=== PATIENT | male | born 1965 | race Caucasian/White ===

== ENCOUNTER 2017-12-07 14:19 | Emergency (ER) | payer OTHER ==
[~2017-12-07] VITALS: Ht 182.9 cm; Wt 95.3 kg
[2017-12-07] MEDS ORDERED: ONDANSETRON HCL INJ 2 MG/ML VIAL IV STA (15:26)
[2017-12-07] MEDS ORDERED: MORPHINE SULFATE INJ 4 MG/ML INJ IV STA (15:26)
[2017-12-07] MEDS ORDERED: SODIUM CHLORIDE 0.9% 1000ML 1,000 ML IV STA (15:26)
[2017-12-07 16:05] LABS: BASOPHILS # (AUTO) 0.1 (0.0-0.1); BASOPHILS % 0.8 % (0.0-1.0); EOSINOPHILS # (AUTO) 0.2 (0.0-0.4); EOSINOPHILS % 2.1 % (0.0-6.0); HEMATOCRIT 41.5 % (38.2-49.6); HEMOGLOBIN 14.3 g/dL (14.0-18.0); LYMPHOCYTES # (AUTO) 2.2 (1.0-3.2); LYMPHOCYTES % 26.2 % (18.0-39.1); MEAN CORPUSCULAR HEMOGLOBIN 30.4 pg (28-32); MEAN CORPUSCULAR HGB CONC 34.5 g/dL (31-35); MEAN CORPUSCULAR VOLUME 88.3 fL (81-99); MONOCYTES # (AUTO) 0.8 (0.2-0.8); MONOCYTES % 9.1 % (4.4-11.3); NEUTROPHILS # (AUTO) 5.2 (2.1-6.9); NEUTROPHILS % 61.3 % (38.7-80.0); PLATELET COUNT 232 x10e3/uL (140-360); RED CELL DISTRIBUTION WIDTH 12.8 % (11.7-14.4)
--- NOTE | 2017-12-07 16:13 | Diagnostic Imaging Report ---
EXAMINATION: CT of the abdomen and pelvis without contrast. TECHNIQUE: Spiral CT images of the abdomen and pelvis were performed from the lung bases to the lesser trochanters. No intravenous contrast was given per renal stone protocol. Coronal and sagittal reformatted images were obtained. COMPARISON: None. CLINICAL HISTORY:Left lower back and testicular pain DISCUSSION: ABSENCE OF INTRAVENOUS CONTRAST DECREASES SENSITIVITY FOR DETECTION OF FOCAL LESIONS AND VASCULAR PATHOLOGY. ABDOMEN/PELVIS: LOWER THORAX: Subsegmental atelectasis in the dependent lower lobes. HEPATOBILIARY:No focal hepatic lesion or intrahepatic biliary ductal dilatation. The gallbladder is unremarkable. SPLEEN: Calcified granuloma. No splenomegaly. PANCREAS: No focal masses or ductal dilatation. ADRENALS: No adrenal nodules. KIDNEYS/URETERS: Bilateral nonspecific perinephric fat stranding. No hydronephrosis. No renal, ureteral, or bladder calculi. No gross renal mass lesion though evaluation is limited in the absence of intravenous contrast. PELVIC ORGANS/BLADDER: The urinary bladder is unremarkable. Prostate and seminal vesicles appear normal. PERITONEUM/RETROPERITONEUM: No ascites. No pneumoperitoneum. LYMPH NODES: No pelvic sidewall, retroperitoneal, or mesenteric lymphadenopathy. VESSELS: Atherosclerotic calcification of the abdominal aorta and major branch vessels without aneurysmal dilatation. Evaluation is otherwise limited in the absence of intravenous contrast. GI TRACT: The large bowel shows no evidence of distention or wall thickening. There are scattered descending colon and sigmoid diverticula without wall thickening or adjacent inflammatory change. The appendix is normal. There is no small bowel dilatation to suggest obstruction. BONES AND SOFT TISSUES: Small fat-containing broad-based umbilical hernia without inflammatory change. No osseous destructive lesions. Chronic moderate anterior compression deformity of T11. IMPRESSION: No acute intra-abdominal or pelvic CT abnormalities. No CT evidence of urolithiasis. Atherosclerotic vascular disease. Sigmoid diverticulosis without findings of diverticulitis. Evidence of prior granulomatous infection. Signed by: Dr. Reginaldo Blackwell M.D. on 12/07/2017 4:10 PM
[2017-12-07] MEDS ORDERED: HYDROXYZINE HCL25 MG PO (16:14)
[2017-12-07] MEDS ORDERED: SIMVASTATIN40 MG PO (16:14)
[2017-12-07] MEDS ORDERED: FLECAINIDE ACET50 MG PO (16:14)
[2017-12-07] MEDS ORDERED: TERBINAFINE HC250 MG PO (16:14)
[2017-12-07] MEDS ORDERED: CLOTRIMAZOLE15 GM TOP (16:14)
[2017-12-07] MEDS ORDERED: LISINOPRIL10 MG PO (16:14)
[2017-12-07 16:18] LABS: CLARITY,URINE CLEAR (CLEAR); COLOR,URINE YELLOW (YELLOW)
[2017-12-07 16:19] LABS: BILIRUBIN,URINE NEGATIVE (NEGATIVE); KETONES,URINE NEGATIVE (NEGATIVE); LEUKOCYTE ESTERASE ,URINE NEGATIVE (NEGATIVE); NITRITE,URINE NEGATIVE (NEGATIVE); PROTEIN,URINE DIPSTICK NEGATIVE (NEGATIVE); URINE UROBILINOGEN 0.2 mg/dL (0.2 - 1)
[2017-12-07 16:36] LABS: ALANINE AMINOTRANSFERASE 30 IU/L (0-55); ALBUMIN 4.2 g/dL (3.5-5.0); ALBUMIN/GLOBULIN RATIO 1.4 (0.8-2.0); ALKALINE PHOSPHATASE 72 IU/L (40-150); BLOOD UREA NITROGEN 11 mg/dL (7-26); BUN/CREATININE RATIO 13 (6-25); CALCIUM 9.7 mg/dL (8.4-10.2); CREATININE, SERUM 0.88 mg/dL (0.72-1.25); EST GLOMERULAR FILTRATION RATE > 60 ML/MIN (60-); GLUCOSE 79 mg/dL (74-118)
[2017-12-07 16:59] LABS: CHLORIDE 104 mmol/L (98-107); POTASSIUM 4.1 mmol/L (3.5-5.1); SODIUM 139 mmol/L (136-145)
[2017-12-07] MEDS ORDERED: MORPHINE SULFATE INJ 4 MG/ML INJ IV ONE (17:10)
[2017-12-07 17:50] LABS: ANION GAP 13.1 mmol/L (8-16); CARBON DIOXIDE 26 mmol/L (22-29)
[2017-12-07] MEDS ORDERED: KETOROLAC TROMETHAMINE 60 MG/2 ML VIAL IM ONE (18:00)
[2017-12-07] MEDS ORDERED: DEXAMETHASONE SOD PHOS INJ 4 MG/ML VIAL IM ONE (18:00)
== END 2017-12-07 19:05 | disposition home or self-care (01) ==
LOC: ER 14:19
DX: N50.812 Left testicular pain (principal); R10.2 Pelvic and perineal pain; N50.89 Other specified disorders of the male genital organs; M54.5 Low back pain; S39.012A Strain of muscle, fascia and tendon of lower back, initial encounter
CPT/HCPCS: 36415; 74176; 80053; 81001; 85025; 99284; J1100; J1885; J2270; J2405; J7030

== ENCOUNTER 2018-07-02 14:38 | Observation (INO) | payer OTHER ==
[~2018-07-02] VITALS: Ht 182.9 cm; Wt 97.5 kg
[2018-07-02] VITALS: BP 127/69
[~2018-07-02 14:38] MED LIST: CLOTRIMAZOLE15 GM TOP; FLECAINIDE ACET50 MG PO; HYDROXYZINE HCL25 MG PO; LISINOPRIL10 MG PO; SIMVASTATIN40 MG PO; TERBINAFINE HC250 MG PO
--- OUTSIDE RECORDS SUMMARY | 2018-07-02 14:42 | XMS REPORT ---
Author Author [facility] Address Unknown Phone Unavailable Care Team Providers Care Broadcast Operations Director Name Role Phone Wayne ALVARADO Unavailable Unavailable Problems This patient has no known problems. Allergies, Adverse Reactions, Alerts This patient has no known allergies or adverse reactions. Medications This patient has no known medications. Results Test Description Test Time Test Comments Text Results Atomic Results Result Comments CT ABDOMEN/PELVIS WO 2017-12-07 16:02:00 [place] [address] Patient Name: ADELITA FRAGA MR #: [id number] : 1965 Age/Sex: 52/M Req #: [id number] Adm Physician: Ordered by: PARKER SCHULTZ POLICE COMMUNICATIONS DISPATCHER Report #: [id number] Location: ER Room/Bed: Procedure: [id number] CT/CT ABDOMEN/PELVIS WO Exam Date: 12/07/17 Exam Time: 1544 REPORT STATUS: Signed EXAMINATION: CT of the abdomen and pelvis without contrast. TECHNIQUE: Spiral CT images of the abdomen and pelvis were performed from the lung bases to the lesser trochanters. No intravenous contrast was given per renal stone protocol. Coronal and sagittal reformatted images were obtained. COMPARISON: None. CLINICAL HISTORY:Left lower back and testicular pain DISCUSSION: ABSENCE OF INTRAVENOUS CONTRAST DECREASES SENSITIVITY FOR DETECTION OF FOCAL LESIONS AND VASCULAR PATHOLOGY. ABDOMEN/PELVIS: LOWER THORAX: Subsegmental atelectasis in the dependent lower lobes. HEPATOBILIARY:No focal hepatic lesion or intrahepatic biliary ductal dilatation. The gallbladder is unremarkable. SPLEEN: Calcified granuloma. No splenomegaly. PANCREAS: No focal masses or ductal dilatation. ADRENALS: No adrenal nodules. KIDNEYS/URETERS: Bilateral nonspecific perinephric fat stranding. No hydronephrosis. No renal, ureteral, or bladder calculi. No gross renal mass lesion though evaluation is limited in the absence of intravenous contrast. PELVIC ORGANS/BLADDER: The urinary bladder is unremarkable. Prostate and seminal vesicles appear normal. PERITONEUM/RETROPERITONEUM: No ascites. No pneumoperitoneum. LYMPH NODES: No pelvic sidewall, retroperitoneal, or mesenteric lymphadenopathy. VESSELS: Atherosclerotic calcification of the abdominal aorta and major branch vessels without aneurysmal dilatation. Evaluation is otherwise limited in the absence of intravenous contrast. GI TRACT: The large bowel shows no evidence of distention or wall thickening. There are scattered descending colon and sigmoid diverticula without wall thickening or adjacent inflammatory change. The appendix is normal. There is no small bowel dilatation to suggest obstruction. BONES AND SOFT TISSUES: Small fat-containing broad-based umbilical hernia without inflammatory change. No osseous destructive lesions. Chronic moderate anterior compression deformity of T11. IMPRESSION: No acute intra-abdominal or pelvic CT abnormalities. No CT evidence of urolithiasis. Atherosclerotic vascular disease. Sigmoid diverticulosis without findings of diverticulitis. Evidence of prior granulomatous infection. Signed by: Dr. Cheo Desir M.D. on 12/07/2017 4:10 PM Dictated By: CHEO DESIR MD [id number] Transcribed By: VICKI on 12/07/17 1610 COPY TO: PARKER SCHULTZ NP
--- NOTE | 2018-07-02 15:18 | Diagnostic Imaging Report ---
EXAM: CHEST SINGLE (PORTABLE) DATE: 07/02/2018 2:47 PM INDICATION:Shortness of breath COMPARISON: None FINDINGS: Lines and tubes: There is a loop recorder device projected on the left mid chest. Heart size normal. No focal pulmonary opacity, pleural effusion or pneumothorax. Upper abdomen unremarkable. No acute bony abnormality. IMPRESSION: No evidence for acute disease. Signed by: Dr. Myke Pompa M.D. on 07/02/2018 3:15 PM
[2018-07-02 15:37] LABS: BASOPHILS # (AUTO) 0.1 (0.0-0.1); BASOPHILS % 0.7 % (0.0-1.0); EOSINOPHILS # (AUTO) 0.2 (0.0-0.4); EOSINOPHILS % 2.6 % (0.0-6.0); HEMATOCRIT 43.4 % (38.2-49.6); HEMOGLOBIN 14.7 g/dL (14.0-18.0); LYMPHOCYTES % 22.2 % (18.0-39.1); MEAN CORPUSCULAR HEMOGLOBIN 30.2 pg (28-32); MEAN CORPUSCULAR HGB CONC 33.9 g/dL (31-35); MEAN CORPUSCULAR VOLUME 89.1 fL (81-99); MONOCYTES # (AUTO) 0.7 (0.2-0.8); MONOCYTES % 8.2 % (4.4-11.3); NEUTROPHILS # (AUTO) 5.9 (2.1-6.9); NEUTROPHILS % 65.9 % (38.7-80.0); PLATELET COUNT 242 x10e3/uL (140-360); RED BLOOD COUNT 4.87 x10e6/uL (4.3-5.7); RED CELL DISTRIBUTION WIDTH 12.7 % (11.7-14.4)
[2018-07-02] MEDS ORDERED: ACETAMINOPHEN 325 MG TAB PO ONE (15:45)
[2018-07-02 15:54] LABS: INR 0.9; PARTIAL THROMBOPLASTIN TIME 31.5 seconds (23.8-35.5); PROTHROMBIN TIME 12.6 seconds (11.9-14.5)
[2018-07-02 16:06] LABS: ALANINE AMINOTRANSFERASE 32 IU/L (0-55); ALBUMIN/GLOBULIN RATIO 1.3 (0.8-2.0); ALKALINE PHOSPHATASE 74 IU/L (40-150); ANION GAP 12.1 mmol/L (8-16); BLOOD UREA NITROGEN 11 mg/dL (7-26); BUN/CREATININE RATIO 13 (6-25); CALCIUM 9.6 mg/dL (8.4-10.2); CARBON DIOXIDE 26 mmol/L (22-29); CHLORIDE 100 mmol/L (98-107); CREATINE KINASE 73 IU/L (30-200); CREATININE, SERUM 0.83 mg/dL (0.72-1.25); EST GLOMERULAR FILTRATION RATE > 60 ML/MIN (60-); GLUCOSE 95 mg/dL (74-118); MAGNESIUM 2.4 MG/DL (1.3-2.1); POTASSIUM 4.1 mmol/L (3.5-5.1); SODIUM 134 mmol/L (136-145)
[2018-07-02] MEDS ORDERED: ONDANSETRON HCL INJ 2MG/ML 2ML 2 MG/ML VIAL IV PRN (16:30)
[2018-07-02] MEDS ORDERED: MORPHINE SULFATE 2 MG/ML SYR 1ML IV PRN (16:30)
[2018-07-02] MEDS ORDERED: MORPHINE SULFATE INJ 4 MG/ML INJ 1ML IV PRN (16:30)
--- NOTE | 2018-07-02 16:41 | NUR ---
Pharmacy notified there is no pepcid in pyxis at this time.
[2018-07-02] MEDS: FAMOTIDINE 20 MG/2 ML VIAL IV SCH (17:08)
--- NOTE | 2018-07-02 17:50 | NUR ---
Patient arrived from Er via stretcher. He is awake, alert, ambulatory and able to voice concerns. Patient currently denies CP. Tele #[id number]. POC discussed. He was instructed to call for assistance as needed and verbalized understanding. Call drummond within reach. Initial assessment done.
[2018-07-02 18:00] VITALS: BP 149/76
[2018-07-02 18:26] VITALS: BP 149/76
--- NOTE | 2018-07-02 19:00 | NUR ---
WALKING ROUNDS DONE. REPORT GIVEN TO ONCOMING SHIFT
[2018-07-02 20:00] VITALS: BP 118/58
[2018-07-02 21:16] VITALS: BP 118/58
[2018-07-02 23:42] LABS: CREATINE KINASE MB 0.8 ng/mL (0-5.0)
[2018-07-03] VITALS: BP 127/69
[2018-07-03] MEDS: FAMOTIDINE 20 MG/2 ML VIAL IV SCH ×2 (04:17→16:48)
[2018-07-03 06:13] LABS: BASOPHILS # (AUTO) 0.1 (0.0-0.1); EOSINOPHILS # (AUTO) 0.3 (0.0-0.4); HEMATOCRIT 42.1 % (38.2-49.6); HEMOGLOBIN 14.5 g/dL (14.0-18.0); LYMPHOCYTES # (AUTO) 1.9 (1.0-3.2); LYMPHOCYTES % 23.7 % (18.0-39.1); MEAN CORPUSCULAR HEMOGLOBIN 30.3 pg (28-32); MEAN CORPUSCULAR HGB CONC 34.4 g/dL (31-35); MEAN CORPUSCULAR VOLUME 88.1 fL (81-99); MONOCYTES # (AUTO) 0.7 (0.2-0.8); MONOCYTES % 8.3 % (4.4-11.3); NEUTROPHILS % 62.6 % (38.7-80.0); PLATELET COUNT 223 x10e3/uL (140-360); RED BLOOD COUNT 4.78 x10e6/uL (4.3-5.7); RED CELL DISTRIBUTION WIDTH 12.7 % (11.7-14.4)
[2018-07-03 07:30] VITALS: BP 127/69
--- NOTE | 2018-07-03 07:39 | NUR ---
H&P cc: chest pain HPI: 53yoM, PCP , Cardio- , developed right sided cp, then left cp; Some dizziness. PMH: HTN, HLD, PAF, FL without stent, current smoker PSHx: loop recorder, A.fib ablation Allergies; see emr Fh/SH; 1 1/2ppd cigs meds; see MAR ROS: no f/c/s/n/V/D/COSTA/vision changes/leg pain/skin rash/back pain v/s; revd PE nad anicteric ns1s2 mod bs soft nt nd no e/t a&ox3; bell skin dry n. affect labs/meds; revd A/P: 53yoM Atypical chest pain HTn HLD PAF Current smoker PLAN serial enzymes Flecanide/aceI ASA/statin Echo normal; cleared by cardio; Needs to f/u outpt for stress test with cardio. encouraged to quit cigs. d/c home f/u pcp 1 week and cardiology 3 days for stress test stable d/c>35mins Chava Sagastume MD, PhD.
[2018-07-03 07:49] LABS: ALANINE AMINOTRANSFERASE 31 IU/L (0-55); ALBUMIN 3.6 g/dL (3.5-5.0); ALBUMIN/GLOBULIN RATIO 1.2 (0.8-2.0); ALKALINE PHOSPHATASE 74 IU/L (40-150); ANION GAP 13.3 mmol/L (8-16); CALCIUM 9.3 mg/dL (8.4-10.2); CARBON DIOXIDE 22 mmol/L (22-29); CHLORIDE 106 mmol/L (98-107); CHOLESTEROL 206 MD/DL (0-199); CREATININE, SERUM 0.79 mg/dL (0.72-1.25); EST GLOMERULAR FILTRATION RATE > 60 ML/MIN (60-); GLUCOSE 112 mg/dL (74-118); HDL CHOLESTEROL 41 MG/DL (40-60); LDL CHOLESTEROL 114 MG/DL (60-130); POTASSIUM 4.3 mmol/L (3.5-5.1); SODIUM 137 mmol/L (136-145); TRIGLYCERIDES 256 MG/DL (0-149)
[2018-07-03 08:01] VITALS: BP 141/80
[2018-07-03 08:03] LABS: BLOOD UREA NITROGEN 13 mg/dL (7-26); BUN/CREATININE RATIO 17 (6-25)
[2018-07-03 08:16] LABS: CREATINE KINASE 55 IU/L (30-200)
[2018-07-03] MEDS ORDERED: ASPIRIN 81 MG ENTERIC COATED PO SCH (09:00)
--- NOTE | 2018-07-03 09:28 | NUR ---
CASE MANAGEMENT INITIAL ASSESSMENT Biometrics Instructor to bedside to discuss plan of care with patient/family. CM/SW role and care transitions discussed. Anticipated discharge plan discussed along with duration of care. CM/SW discussed patients right to make decisions in care. CM/SW work hours given. Patient lives: Admit/Transfer: ER Hospital/ER visits since last admit:YES POA/Emergency contact: CAT[place]: [phone] Current/Previous Home Health: 0 PCP/Follow-up Care: DR. CARMEL HAYES AT [facility] [place] Current/Previous DME: [employer] [facility] IN CHEST. NO OTHER DME Medications (referring to index hospitalization or the first time you were in the hospital) a. Were changes made in your medications when you were in the hospital on [date of index hospitalization]? X Yes No Not sure Explain: Note: If no or not sure, please skip to question d b. Did you understand the changes? X Yes No Explain: c. Were you able to obtain your new medications right away? X Yes No n/a SNF only Explain: d. Were you able to take your medications like the doctor wanted you to? X Yes No Explain: e. Did the hospital give you an accurate, easy to understand list of medications when you left? X Yes No n/a SNF only Explain: Scale of 1-10 how comfortable does patient feel with disease management in outpatient settin Other Services: [employer] Employment Status: EMPLOYED Areas of Concerns: 0 Referral Needs: 0 Education Needs: 0 IMM/BABIN given and signed (if applicable): N/A Goal for discharge: RETURN HOME WITH WIE CM/SW left business card at the bedside with contact information. Name and number was also written on the patients whiteboard. Patient verbalized understanding of discussion. CM will follow-up with ongoing discharge and transition of care needs.
--- NOTE | 2018-07-03 12:35 | NUR ---
patient and family going out to parking lot. instructed that telemetry probably wouldnt work outside and that there is no smoking at this facility. patient continued to exit building.
[2018-07-03] MEDS ORDERED: FLECAINIDE ACETATE 100 MG TAB PO SCH (12:45)
[2018-07-03 12:49] VITALS: BP 148/79
[2018-07-03] MEDS ORDERED: LISINOPRIL 10 MG TAB PO SCH (13:00)
[2018-07-03 14:51] LABS: CREATINE KINASE 50 IU/L (30-200)
[2018-07-03 16:11] VITALS: BP 143/77
--- NOTE | 2018-07-03 18:13 | Consultation ---
DATE OF CONSULTATION: Cardiology Consultation CONSULTING PHYSICIAN: Dr. Sagastume. REASON FOR CONSULTATION: Chest pain. HISTORY OF PRESENT ILLNESS: Mr. Fink is a 53-year-old male with a pertinent past medical history of atrial fibrillation, hypertension, and SD at the age of 24. He states that he was in his usual state of health. However, yesterday started experiencing some pain in his right upper quadrant radiating to his right upper chest. This pain came with some dizziness and also headache. Two occurrences of the same pain are reported and for that reason, he sought emergency services. This pain is now resolved. At this present time, he denies any chest pain, shortness of breath, palpitations, fevers, chills, cough, dizziness, or syncope. He does report having a PVI done in 2014 and currently has an internal loop recorder. He has been seeing Dr. Alves and had stress test scheduled, however, has not completed testing at this time. REVIEW OF SYSTEMS: Negative except as mentioned above. PAST MEDICAL HISTORY: As stated above. PAST SURGICAL HISTORY: None. SOCIAL HISTORY: He is a smoker. Endorses drinking about six-pack couple times a week. Denies any illicit drug use. PHYSICAL EXAMINATION: VITAL SIGNS: Temperature 96.6, pulse 61, respiratory rate 18, blood pressure 141/80, and oxygen saturation 98% on room air. CARDIOVASCULAR MEDICATIONS: 1. Aspirin 81 mg p.o. daily. 2. Morphine 2 mg q.3 hours p.r.n. 3. Pepcid 20 mg IV q.12 hours. LABORATORY DATA: WBC 7.93, hemoglobin 14.5, hematocrit 42.1, platelets 223. Sodium 137, potassium 4.3, BUN 13, creatinine 0.79, glucose 112, creatine kinase 55, CK-MB 0.80. Troponin less than 0.001. Total cholesterol 206, triglycerides 256, LDL 114. Chest x-ray with no evidence of acute disease. Telemetry, normal sinus rhythm. PHYSICAL EXAMINATION: GENERAL: Alert and oriented x3. Resting comfortably in bed. Does not appear to be in any acute distress. NECK: Supple. No JVD noted. No carotid bruit. CARDIOVASCULAR: Regular rate and rhythm, 2/6 systolic murmur present. No gallops noted. LUNGS: Clear to auscultation throughout. No wheezing. No rhonchi or crackles. ABDOMEN: Soft, nontender. EXTREMITIES: Lower extremity 2+ pedal pulses. No edema. IMPRESSION: 1. Atypical chest pain. 2. Right upper quadrant pain. 3. Paroxysmal atrial fibrillation, status post PVI, now with a loop recorder. 4. Hypertension. 5. History of myocardial infarction at the age of 24. RECOMMENDATION: Acute coronary syndrome has been ruled out with serial cardiac markers. The patient may be further evaluated as outpatient. Okay to discharge this patient from a cardiac standpoint. Medications have been adjusted to help with dizziness as reported by the patient. This occurs occasionally. Continue beta blockers outpatient. Discontinue flecainide at this time. We will continue to follow this patient as outpatient. Thank you for this consultation. Dictated by Courtney Lowe NP MD KENY Nguyễn/JORDAN /[id number]
[2018-07-03] MEDS ORDERED: ASPIRIN EC81 MG PO (19:15)
[2018-07-03] MEDS ORDERED: PEPCID20 MG PO (19:15)
--- NOTE | 2018-07-03 19:19 | NUR ---
D/C summary Principal Dx: Atypical CP Secondary Dx: HTn HLD PAF Current smoker PLAN serial enzymes Flecanide/aceI ASA/statin Echo normal; cleared by cardio; Needs to f/u outpt for stress test with cardio. encouraged to quit cigs. d/c home f/u pcp 1 week and cardiology 3 days for stress test stable d/c>35mins Chava Sagastume MD, PhD.
--- NOTE | 2018-07-03 19:50 | NUR ---
Patient was discharged in good condition. Assisted out of the facility by staff. No complaints made upon discharged.
[2018-07-03] MEDS ORDERED: SIMVASTATIN 40 MG TAB PO SCH (21:00)
== END 2018-07-03 19:50 | disposition home or self-care (01) ==
LOC: ER 14:38 → ERHOLD 16:20 → IMCU 17:51
PROVIDERS: ADMIT Internal Medicine; ATTEND Internal Medicine
DX: R07.89 Other chest pain (principal); I10 Essential (primary) hypertension; I25.10 Atherosclerotic heart disease of native coronary artery without angina pectoris; I48.91 Unspecified atrial fibrillation; I25.2 Old myocardial infarction; R10.11 Right upper quadrant pain; I48.0 Paroxysmal atrial fibrillation; Z95.811 Presence of heart assist device; F17.210 Nicotine dependence, cigarettes, uncomplicated; Z88.0 Allergy status to penicillin; E78.5 Hyperlipidemia, unspecified
CPT/HCPCS: 36415 ×2; 71045; 80053 ×2; 80061; 82550 ×2; 82553 ×2; 83735; 83880; 84484 ×2; 85025 ×2; 85610; 85730; 93005; 93306; 99284; G0378 ×2; J2270